=== PATIENT | male | born 1985 | race Caucasian/White ===

== ENCOUNTER 2018-03-20 10:53 | Emergency (ER) | payer SELFPAY ==
[~2018-03-20] VITALS: Ht 177.8 cm; Wt 75.0 kg
[2018-03-20 11:03] VITALS: BP 111/57; PULSE 81; RESP 16; TEMP 98.6; O2SAT 96
--- NOTE | 2018-03-20 11:33 | PD ---
HPI Chief Complaint: Alcohol/Drug Intoxication Time Seen by Provider: 11:19 Travel History International Travel<30 days: No Contact w/Intl Traveler<30days: No Traveled to known affect area: No History of Present Illness HPI 32-year-old male presents to the emergency department under [place] act by local police for substance abuse. According to the emergency neck, the patient' s mother called 911 stating that he was suicidal. They were able to peeing his cell phone and found him in a car with the windows up and using illicit drugs. The patient states that he was upset this morning, but denies any suicidal or homicidal ideations. Patient states that he was using IV heroin. He reports chronic IV drug use. He denies any alcohol use. He does smoke 1.5 packs of tobacco daily. Patient adamantly denies any thoughts of hurting himself or anybody else. Reports history of schizophrenia, depression. Patient denies any medical complaints at this time. He denies any headache. No chest pain or shortness of breath. No abdominal pain. No nausea, vomiting, diarrhea. Patient states that he feels fine and would like to go home. Moderate severity. Patient did not overdose. He was not given any Narcan. Patient is not under a [place] act. [facility] Social History Alcohol Use: Yes (Occasionally) Tobacco Use: Yes (1.5 packs per day) Substance Use: Yes (IV heroin) Allergies-Medications (Allergen,Severity, Reaction): Coded Allergies: sulfamethoxazole (Verified Allergy, Unknown, 03/20/18) trimethoprim (Verified Allergy, Unknown, 03/20/18) Review of Systems Except as stated in HPI: all other systems reviewed are Neg Physical Exam Narrative GENERAL: Well-nourished, well-developed male patient, afebrile. Patient is alert and oriented to person, place, time. SKIN: Focused skin assessment warm/dry. HEAD: Normocephalic. Atraumatic. EYES: No scleral icterus. No injection or drainage. NECK: Supple, trachea midline. No JVD or lymphadenopathy. CARDIOVASCULAR: Regular rate and rhythm without murmurs, gallops, or rubs. RESPIRATORY: Breath sounds equal bilaterally. No accessory muscle use. Lung sounds are clear to auscultation throughout. GASTROINTESTINAL: Abdomen soft, non-tender, nondistended. MUSCULOSKELETAL: No cyanosis, or edema. BACK: Nontender without obvious deformity. No CVA tenderness. PSYCHIATRIC: No delusional thought processes. No hallucinations. Data Data Last Documented VS Vital Signs Date Time Temp Pulse Resp B/P (MAP) Pulse Ox O2 Delivery O2 Flow Rate FiO2 03/20/18 11:14 81 16 96 Room Air 03/20/18 11:03 98.6 111/57 (75) Orders Orders Complete Blood Count With Diff (03/20/18 11:49) Comprehensive Metabolic Panel (03/20/18 11:49) Drug Screen, Random Urine (03/20/18 11:49) Alcohol (Ethanol) (03/20/18 11:49) Potassium Chloride (Kcl) (03/20/18 13:45) Labs Laboratory Tests Test 03/20/18 12:05 03/20/18 12:10 White Blood Count 10.2 TH/MM3 Red Blood Count 4.63 MIL/MM3 Hemoglobin 14.7 GM/DL Hematocrit 42.9 % Mean Corpuscular Volume 92.7 FL Mean Corpuscular Hemoglobin 31.8 PG Mean Corpuscular Hemoglobin Concent 34.3 % Red Cell Distribution Width 13.4 % Platelet Count 241 TH/MM3 Mean Platelet Volume 7.9 FL Neutrophils (%) (Auto) 63.9 % Lymphocytes (%) (Auto) 22.3 % Monocytes (%) (Auto) 7.7 % Eosinophils (%) (Auto) 5.4 % Basophils (%) (Auto) 0.7 % Neutrophils # (Auto) 6.5 TH/MM3 Lymphocytes # (Auto) 2.3 TH/MM3 Monocytes # (Auto) 0.8 TH/MM3 Eosinophils # (Auto) 0.5 TH/MM3 Basophils # (Auto) 0.1 TH/MM3 CBC Comment DIFF FINAL Differential Comment Blood Urea Nitrogen 13 MG/DL Creatinine 1.04 MG/DL Random Glucose 109 MG/DL Total Protein 6.8 GM/DL Albumin 3.6 GM/DL Calcium Level 8.7 MG/DL Alkaline Phosphatase 78 U/L Aspartate Amino Transf (AST/SGOT) 79 U/L Alanine Aminotransferase (ALT/SGPT) 211 U/L Total Bilirubin 0.2 MG/DL Sodium Level 140 MEQ/L Potassium Level 3.1 MEQ/L Chloride Level 102 MEQ/L Carbon Dioxide Level 30.3 MEQ/L Anion Gap 8 MEQ/L Estimat Glomerular Filtration Rate 83 ML/MIN Ethyl Alcohol Level LESS THAN 3 MG/DL Urine Opiates Screen POS Urine Barbiturates Screen NEG Urine Amphetamines Screen POS Urine Benzodiazepines Screen POS Urine Cocaine Screen POS Urine Cannabinoids Screen POS MDM Medical Decision Making Medical Screen Exam Complete: Yes Emergency Medical Condition: Yes Medical Record Reviewed: Yes Differential Diagnosis Substance abuse versus depression versus anxiety Narrative Course 32-year-old male presents to the emergency department under [facility] act by local police for substance abuse. He is not under [place] act he denies any thoughts of hurting himself or anybody else. Patient answers all questions appropriately and is awake and alert. He has no medical complaints at this time. CBC shows no acute abnormality. CMP shows hypokalemia 3.1, AST 79, ALT 211. Urine drug screen is positive for opiates, amphetamines, benzos, cocaine, cannabinoids. Alcohol level is less than 3. Patient is given potassium 40 meq PO for hypokalemia. Patient will be allowed to rest in the emergency department until clinically sober or he has a ride. Diagnosis Primary Impression: Substance abuse Referrals: [facility] Patient Instructions: General Instructions, Polysubstance Abuse (ED) Additional Instructions: Follow-up at [facility]. Stop using IV drugs. Return to the emergency department for any acute worsening of symptoms. Med/Other Pt SpecificInfo: No Change to Meds Disposition: 01 DISCHARGE HOME Condition: Stable Tere Davis REESE Mar 20, 2018 11:33
[2018-03-20 12:43] LABS: AUTOMATED NEUTROPHIL # 6.5 TH/MM3 (1.8-7.7); BASOPHIL # 0.1 TH/MM3 (0-0.2); BASOPHIL % 0.7 % (0.0-2.0); EOSINOPHIL # 0.5 TH/MM3 (0-0.4); EOSINOPHIL % 5.4 % (0.0-4.0); HEMATOCRIT 42.9 % (39.0-51.0); HEMOGLOBIN 14.7 GM/DL (13.0-17.0); LYMPH % 22.3 % (9.0-44.0); LYMPHOCYTE # 2.3 TH/MM3 (1.0-4.8); MEAN CELL VOLUME 92.7 FL (80.0-100.0); MEAN CORPUSCULAR HEMOGLOBIN 31.8 PG (27.0-34.0); MEAN CORPUSCULAR HGB CONC 34.3 % (32.0-36.0); MEAN PLATELET VOLUME 7.9 FL (7.0-11.0); MONO % 7.7 % (0.0-8.0); MONOCYTE # 0.8 TH/MM3 (0-0.9); NEUT % 63.9 % (16.0-70.0); PLATELET COUNT 241 TH/MM3 (150-450); RED BLOOD COUNT 4.63 MIL/MM3 (4.50-5.90); RED CELL DISTRIBUTION WIDTH 13.4 % (11.6-17.2); WHITE BLOOD COUNT 10.2 TH/MM3 (4.0-11.0)
[2018-03-20 13:01] LABS: ALBUMIN 3.6 GM/DL (3.4-5.0); ALT (GPT) 211 U/L (12-78); AST (GOT) 79 U/L (15-37); BICARBONATE 30.3 MEQ/L (21.0-32.0); BLOOD UREA NITROGEN 13 MG/DL (7-18); CALCIUM 8.7 MG/DL (8.5-10.1); CHLORIDE 102 MEQ/L (98-107); CREATININE 1.04 MG/DL (0.60-1.30); GLOMERULAR FILTRATION RATE 83 ML/MIN (>89); GLUCOSE,RANDOM 109 MG/DL (74-106); SODIUM (NA) 140 MEQ/L (136-145)
[2018-03-20 13:03] LABS: ALKALINE PHOSPHATASE 78 U/L (45-117); TOTAL BILIRUBIN ADULT 0.2 MG/DL (0.2-1.0); TOTAL PROTEIN 6.8 GM/DL (6.4-8.2)
[2018-03-20] MEDS ORDERED: POTASSIUM CHLORIDE 20 MEQ CONTROLLED RELEASE TAB PO ONE (13:45)
== END 2018-03-20 15:22 | disposition home or self-care (01) ==
LOC: NEDAMB 10:53
DX: F11.10 Opioid abuse, uncomplicated (principal); F17.210 Nicotine dependence, cigarettes, uncomplicated; F19.10 Other psychoactive substance abuse, uncomplicated; E87.6 Hypokalemia; F20.9 Schizophrenia, unspecified; F32.9 Major depressive disorder, single episode, unspecified; Z88.2 Allergy status to sulfonamides
CPT/HCPCS: 80053; 80307; 85025; 99283